=== PATIENT | female | born 1950 | race Caucasian/White ===

== ENCOUNTER → 2021-10-15 16:08 | Outpatient (CLI) | payer MEDICARE, SELFPAY ==
--- NOTE | ~2021-10-15 | MR_ITS ---
EXAMINATION: MR lumbar spine wo con DATE: 10/15/2021 16:59 INDICATION: Lumbar stenosis. TECHNIQUE: Magnetic resonance imaging (MRI) of the lumbar spine was performed without intravenous con trast. Sequences included sagittal T2-weighted FSE, sagittal T2-weighted FS FSE, sagittal T1-weighted FSE, and axial T2-weighted FSE. COMPARISON: Lumbar spine MRI 09/08/2018 FINDINGS: There is 8 degrees levocurvature of lumbar spine. There is 4 mm anterolisthesis of L3 on L4 and 6 mm anterolisthesis of L5 on S1. Vertebral body heights are normal. Again seen is a hemangioma in T12 vertebral body. There is severely decreased disc height at L1-L2 and L2-L3, moderately decreas ed disc height at L3-L4, and severely decreased disc height at L4-L5 and L5-S1 with endplate remodeli ng. The distal spinal cord signal intensity is normal. The conus medullaris is at L1. The following d isc levels are specifically discussed: L1-L2: The disc is bulging and has an annular fissure. There is severe bilateral facet joint osteoart hritis. There is moderate bilateral neural foraminal stenosis. There is mild central canal stenosis. L2-L3: The disc is bulging and has an annular fissure. There is severe bilateral facet joint osteoart hritis. There is moderate right and mild left neural foraminal stenosis. There is mild central canal stenosis. L3-L4: The disc is bulging and has an annular fissure. There is severe bilateral facet joint osteoart hritis. There is moderate right and mild left neural foraminal stenosis. There is mild central canal stenosis. L4-L5: The disc is bulging with superimposed right central extrusion. There is severe bilateral facet joint osteoarthritis. There is moderate bilateral neural foraminal stenosis. There is mild central c anal stenosis. L5-S1: The disc is bulging and has an annular fissure. There is severe bilateral facet joint osteoart hritis. There is moderate bilateral neural foraminal stenosis. There is mild central canal stenosis. IMPRESSION: 1. Severe lumbar spondylosis, worsened from 09/08/2018. Reviewed, dictated and finalized at location A.
== END ==
PROVIDERS: Visit Provider Neurological Surgery
DX: M48.061 Spinal stenosis, lumbar region without neurogenic claudication (principal); M47.896 Other spondylosis, lumbar region
CPT/HCPCS: 72148

== ENCOUNTER 2022-04-10 11:34 | Outpatient (CLI) | payer MEDICARE, SELFPAY ==
[2022-04-10 12:04] LABS: Basophils Absolute Auto 0.1 K/mm3 (0.0-0.1); Basophils Percent Auto 1.8 % (0.2-1.2); Eosinophils Absolute Auto 0.7 K/mm3 (0-0.3); Eosinophils Percent Auto 9.9 % (0-4.4); Hematocrit 37.6 % (37.0-47.0); Hemoglobin 12.9 g/dL (12.0-15.0); Immature Granulocyte Absolute 0.01 K/mm3 (0.00-0.031); Immature Granulocyte Percent A 0.1 % (0-0.5); Lymphocytes Absolute Auto 1.65 K/mm3 (0.9-3.2); Lymphocytes Percent Auto 24.5 % (18.3-44.2); Mean Corpuscular HGB Conc 34.3 g/dl (32-36); Mean Corpuscular Hemoglobin 29.9 pg (26-34); Mean Platelet Volume 9.7 fl (7.4-10.4); Monocytes Absolute Auto 0.5 K/mm3 (0.1-0.6); Monocytes Percent Auto 7.3 % (2.6-8.5); Neutrophils Absolute Auto 3.8 K/mm3 (1.3-6.7); Neutrophils Percent Auto 56.4 % (45.5-73.1); Platelet Count Result 246 k/mm3 (150-375); Red Blood Count 4.32 M/mm3 (4.2-5.4); Red Cell Distribution Width 12.3 % (11.5-14.5); White Blood Count 6.7 K/mm3 (4.5-10.0)
[2022-04-10 12:06] LABS: Appearance Urine Slightly Cloudy (Clear); Bilirubin Urine Negative (Negative); Blood Urine Negative (Negative); Color Urine Yellow (Yellow); Glucose Urine UA Negative (Negative); Ketones Urine Negative (Negative); Leukocyte Esterase Ur Trace LEU/UL (Negative); Nitrate Urine Negative (Negative); Protein Urine Negative (Negative); Specific Grav Ur 1.015 (1.001-1.035); Urobilinogen Urine 0.2 mg/dL (<2.0)
[2022-04-10 12:14] LABS: Bacteria Urine Trace /hpf; Mucus Urine Rare /lpf; RBC Urine 0-2 /hpf (0-2); Squamous Epithelial Cell Urine Moderate /hpf (Few); WBC Urine 0-3 /hpf
[2022-04-10 12:15] LABS: Add Urine Microscopic? YES
[2022-04-10 12:16] LABS: Anion Gap 13 mmol/L (8-16); Blood Urea Nitrogen 27 mg/dL (7-17); Calcium 9.4 mg/dL (8.4-10.2); Carbon Dioxide 27 mmol/L (22-30); Chloride 99 mmol/L (98-107); Estimated Glomerular Filt Rate 49; Glucose 87 mg/dL (65-110); Potassium 4.1 mmol/L (3.4-5.0); Sodium 139 mmol/L (137-145)
--- NOTE | 2022-04-10 12:16 | ECG_ITS ---
Measurements Intervals [place] Rate: 60 P: 34 NC: 189 QRS: 12 QRSD: 93 T: 0 QT: 391 QTc: 392 Interpretive Statements SINUS RHYTHM LOW QRS VOLTAGE IN PRECORDIAL LEADS CONSIDER INFERIOR INFARCT, AGE INDETERMINATE BASELINE ARTIFACT- I, II, III ABNORMAL ECG NO PREVIOUS ECG AVAILABLE FOR COMPARISON Electronically Signed On 04-10-2022 13:25:57 CUSTOMER ENGAGEMENT ANALYST by Miller Johnson D.O.
== END 2022-04-10 11:35 | disposition home or self-care (01) ==
PROVIDERS: PCP Family Medicine; Visit Provider Neurological Surgery
DX: Z01.818 Encounter for other preprocedural examination (principal); M54.9 Dorsalgia, unspecified
CPT/HCPCS: 36415; 80048; 81001; 85025; 86850; 86900; 86901; 93005

== ENCOUNTER 2022-04-29 13:34 | Outpatient (CLI) | payer MEDICARE, SELFPAY | END 2022-04-29 13:35 | disposition home or self-care (01) | LOC: ANHSURGERY 13:36 | PROVIDERS: PCP Family Medicine; Visit Provider Neurological Surgery | DX: M43.16 Spondylolisthesis, lumbar region (principal); Z01.818 Encounter for other preprocedural examination | CPT/HCPCS: 36415; 86850; 86900; 86901 ==

== ENCOUNTER 2022-05-05 15:37 | Inpatient (IN) | payer MEDICARE, SELFPAY ==
[2022-04-22 13:06] VITALS: BMI 36.1
--- NOTE | 2022-04-22 13:39 | PC.NURSE ---
Report to the Outpatient Waiting Room, entrance under the green pavilion located off [facility], at time __6:00AM on date __05/04/22 . Planned Procedure Time: _7:30AM . Time changes happen often and if your time is changed the preop area will call you the afternoon before. - You and your visitor will be asked to self-screen and do not enter if you have any COVID symptoms. - Only one visitor is requested with a max of two and NO children visitors are allowed at this time. - The patient visitor may be requested to leave or wait in car when not with patient due to distancing restrictions. - A mask is optional within the hospital. Patients may have clear liquids (water, carbonated beverages, clear teas, apple juice) until 3 hours prior to surgery with a maximum of 20 ounces. - No food from midnight until time of surgery Take the following medications with a SIP of water the morning of surgery: __AMLODIPINE, GABAPENTIN NEEDED, TRAMADOL NEEDED___ Medications to discontinue per physician _HOLD ASPIRIN & DICLOFENAC PER DR STAFFORD(7 DAYS PRE-OP PER OFFICE INSTRUCTION TO PT)-LAST DOSE 04/26/22. HOLD ALL VITAMINS/SUPPLEMENTS 3 DAYS PRE-OP - LAST DOSE 04/30/22. Please no make-up, nail belgian, hairspray, perfume, deodorant, or body powder the day of surgery. No jewelry (including any body piercings) or valuables the day of surgery, leave them at home. Please take a shower or bath the night before, or the morning of, surgery with an antibacterial soap. Wear comfortable, loose fitting clothing. Children are encouraged to wear pajamas. - Jewelry must be removed prior to entering the operating room. Rings and piercings that are not removed may be cut off. - The hospital will not accept responsibility for valuables. - Please leave all valuables, including medications, at home the day of surgery. If you are going home after surgery, a licensed line haul driver must drive you home. - NO public transportation without another adult if you receive anesthesia. - We recommend that an adult stay with you for 24 hours following discharge. - We also recommend that you do not drive, make important decision, drink alcoholic beverages, or take any drugs that were not prescribed by your health care provider for at least 24 hours after your discharge time. Follow any additional instructions given to you from your surgeon. If you or anyone in your household have experienced Covid symptoms in the past week, please notify your surgeon or the nurse liaison at the phone number below for possible testing. Telephone instructions given to _PATIENT__and asked if any additional questions and then verbalized understanding. Patient advised to call surgeon office or pre surgery nurse liaison [phone] if any additional questions.
[2022-05-04] VITALS (25 sets, daily range): BP systolic 101–150; BP diastolic 52–87; PULSE 59–93; RESP 10–20; TEMP 36.1–36.7; O2SAT 96–100
[2022-05-04] MEDS: LACTATED RINGERS 1,000 ML 30 ML IV CONT ×2 (06:35→12:16)
[2022-05-04 07:00] LABS: INR 1.1; Prothrombin Time 13.5 Seconds (11.1-14.7)
[2022-05-04 07:01] LABS: Partial Thromboplastin Time 26.9 SECONDS (22.3-36.8)
--- NOTE | 2022-05-04 07:57 | WPDANESEPPF ---
Anes - Initial Pre Proc Eval Procedure: Operation Date: 05/04/22 07:30 Proposed Procedures p L1-2 Lumbar Decompression with Adjunctive Posterior Lateral Fusion L3-4 - Drea Alfaro MD Date/Time: 05/04/22 07:57 Surgeon: Drea Alfaro MD Pre Op Diagnosis: spondylosis L3-4, spinal stenosis L1-2 Patient Data Age: 71 Gender: F Height: 1.52 m Weight: 80.4 kg Last Vital Signs Temp 36.4 C L 05/04/22 06:49 Pulse 72 05/04/22 06:49 Resp 18 05/04/22 06:49 BP 150/87 H 05/04/22 06:49 Pulse Ox 99 05/04/22 06:49 O2 Del Method Room Air 05/04/22 06:49 Allergies Allergy/AdvReac Type Severity Reaction Status Date / Time ergotamine AdvReac Unknown Nausea Verified 05/04/22 06:38 Home Medications Medication Instructions Recorded Confirmed Type atorvastatin 10 mg tablet 10 mg PO DAILY 12/05/21 05/04/22 History cetirizine 10 mg tablet (Zyrtec) 10 mg PO DAILY PRN Sinus Symptoms 12/05/21 05/04/22 History hydrochlorothiazide 25 mg tablet 25 mg PO QAM 12/05/21 05/04/22 History lansoprazole 30 mg capsule,delayed 30 mg PO DAILY 12/05/21 05/04/22 History release losartan 50 mg tablet 50 mg PO QAM 12/05/21 05/04/22 History metoprolol succinate 50 mg 50 mg PO QPM 12/05/21 05/04/22 History tablet,extended release 24 hr tramadol 50 mg tablet 50 mg PO TID PRN Pain 12/05/21 04/22/22 History tretinoin 0.01 % topical gel 1 applic topical QHS 12/05/21 04/22/22 History (Retin-A) amlodipine 5 mg tablet 5 mg PO QAM 03/27/22 05/04/22 History gabapentin 300 mg capsule 300 mg PO QID #120 caps 04/17/22 05/04/22 Rx acetaminophen 500 mg tablet 1,000 mg PO TID PRN Pain 04/22/22 05/04/22 History aspirin 81 mg tablet 81 mg PO DAILY 04/22/22 05/04/22 History cholecalciferol (vitamin D3) 50 50 mcg PO DAILY 04/22/22 05/04/22 History mcg (2,000 unit) capsule diclofenac sodium 75 mg 75 mg PO BID 04/22/22 05/04/22 History tablet,delayed release lactobacillus combination no.8 3 1 cell PO DAILY 04/22/22 05/04/22 History billion cell capsule multivitamin 1 tablet PO DAILY 04/22/22 05/04/22 History polyethylene glycol 3350 17 gram 17 g PO DAILY PRN Constipation 04/22/22 04/22/22 History oral powder packet (Miralax) Laboratory Tests 05/04/22 06:24 PT 13.5 Seconds Seconds (11.1-14.7) INR 1.1 APTT 26.9 SECONDS SECONDS (22.3-36.8) Patient hx anesthesia problems: none Family hx anesthesia problems: none Results Review: All pre-operative results and documents have been reviewed as part of the pre-operative evaluation. [facility] Past Medical History Medical History Arthritis Asthma GERD (gastroesophageal reflux disease) Hypertension Lumbar stenosis Sleep apnea Surgical History Surgical History History of carpal tunnel surgery Hx of breast reduction, elective Family History Family History Other Dementia Diabetes mellitus Heart disease Hypertension Social History Social History Smoking status: Never smoker Alcohol intake: never Substance use: never Substance use type: does not use Living arrangements: alone Spiritual care concerns: No Anes - Eval Final PreProcedure Day of Procedure 05/04/22 07:57 Patient weight: obese Heart: regular rate and rhythm Lungs: clear to auscultation Airway: Mallampati scale class II Neurological: alert and oriented Last oral intake: >/= 8 hours ASA classification: III Emergent: no Anesthetic plan: proceed Anesthesia type and monitoring: general ETT and standard monitoring Results Review: All pre-operative results and documents have been reviewed as part of the pre-operative evaluation. Informed Consent: The patient's anesthetic plan and its attendant risks and benefits were discussed with the patient/fam
--- NOTE | 2022-05-04 08:43 | PM.IMHP ---
H&P: HPI History of Present Illness Date/Time: 05/04/22 08:43 Chief Complaint: Kami Bello? is a very pleasant 71-year-old female who was originally seen in consultation at the request of Dr. Ismael Holt.? At the time of her initial visit the patient presented with a chief complaint of low back pain with radiation to the right buttock and anterior thigh.? When she originally saw Dr. Holt on April 29, 2021, her pain was her primary complaint.? She has had symptoms for approximately 4-5 years.? They have been progressive over the past 18 months.? Kami does not recall a specific inciting events.? At her visit with Dr. Holt she noted pain that she rated approximately 3/10.? She had increase in her pain with standing or walking any significant distance as well as with driving toward the end of the day.? At that initial visit with Dr. Holt the patient had noted a subjective sense of proximal right lower extremity weakness.? She was referred to see me.? At my initial visit she felt that an oral taper steroid taper had helped with her symptoms.? She remained, however, with intermittent pain and persistent sensory change in the right anterior thigh with radiation from the hip to the knee. MR imaging performed on February 27, 2021 showed multilevel spondylotic changes with disc desiccation and loss of disc space height.? A disc bulge in concert with epidural lipomatosis contributed to [id number] central stenosis at L1-2 and moderate stenosis at L2-3 and L3-4.? There was a grade 1 anterolisthesis at L3-4 and another at L5-S1.? At L5-S1 there was bilateral neural foraminal stenosis.? AP lateral and dynamic plain x-ray showed the listhesis L3-4 increasing in flexion with reduction in extension.? There was no dynamic instability at L5-S1. When I initially saw Kami I did not see an objective finding of weakness on examination.? The patient has undergone epidural steroid injections particularly targeting L2-3 and L3-4.? These have given significant relief of her pain but they have not been lasting relief of her pain.? She returns to my office with frustration particularly regarding her proximal right lower extremity symptoms.? Her most recent injection toward the end of July gave complete relief of her symptoms but has not lasted for more than 1-2 months.? She is inclined to consider surgery.? She does know, however, that she has sustained a fracture in her left foot and is currently wearing a boot.? She would like to have the fracture heal prior to any consideration of surgery.? She does have a history of prior bone density testing with normal bone density, most recently in 2019. Kami has undergone updated MRI imaging of the lumbar spine at [facility] in September of 2021.? This again shows the multilevel degenerative changes.? There has been progression of stenosis at L1-2 with primarily? epidural lipomatosis.? There is at least moderate stenosis at this level.? At L2-3 there is only mild central stenosis.? At L3-4 the combination of anterolisthesis, disc bulge, and ligamentous hypertrophy contribute to moderate severe central stenosis.? There is severe bilateral neuroforaminal stenosis at this level.? At a subsequent visit we discussed the possibility of surgical intervention, specifically a lumbar decompression at L1-2 and a lumbar decompression with adjunctive fusion at L3-4.? I recommended the patient heal from her foot fracture prior to consideration of surgery.? Her foot fracture has healed.? She remains, however, with low back and lower extremity symptoms that are increasingly limiting.? She is inclined to consider surgery and surgery is planned for today. There have been no changes since our office visit in February 2022 The patient has undergone bone density testing since our last visit.? This shows normal bone density PMFSH Past Medical History Medical History Arthritis Asthma GERD (gastroesophageal
[2022-05-04] MEDS: ceFAZolin 2 GM/D5W 50 ML 2 GM/50 ML BAG IVPB (08:55)
--- NOTE | 2022-05-04 09:22 | WPDHPUPDATE1 ---
History and Physical Update Update Date/Time: 05/04/22 09:22 History and Physical has been reviewed, including an updated exam of the patient. There are NO changes in the patient's condition. Risks, benefits, and alternatives have been discussed and questions answered. Patient agrees to proceed with procedure.
[2022-05-04] MEDS: LIDO 1%/EPINEPHRINE/PF 1:200,000 30 ML VIAL INFILTRATE (09:53)
[2022-05-04] MEDS: VANCOMYCIN HCL 1,000 MG VIAL 1000 MG TOPICAL (11:22)
--- NOTE | 2022-05-04 12:00 | W.PM.PROC2 ---
Procedure Note - Detailed Date of Procedure 05/04/22 Pre-op Diagnosis spondylosis L3-4, spinal stenosis L1-2 Post-op Diagnosis Same Procedure Performed 1. Lumbar laminectomy and medial facetectomy for spinal stenosis L1-2 2. Hurst decompression with en bloc resection of facet complexes bilaterally for spondylolisthesis L3-4 3. Posterolateral arthrodesis, L3-4 4. Instrumented non segmental fusion L3-4 Surgeon Drea Alfaro MD Anesthesia General Indications Kami Bello? is a very pleasant 71-year-old female who presents at the request of Dr. Ismael Holt with signs and symptoms of proximal right lower extremity pain and sensory changes in the setting of lumbar stenosis with epidural lipomatosis and spondylolisthesis most pronounced at L1-2 and L3-4 on imaging.? The patient's prior stenosis seen at L2-3 is less significant on most updated imaging.? The patient has tried treatments include physical therapy as well as epidural steroid injections.? Recent injections have given significant temporary relief of the patient's symptoms but she has had recurrent pain.? She is increasingly frustrated by her pain and sensory changes well as her lack of mobility and she is inclined to consider surgery.? Her brother, who accompanied her the office, notes that over the past several years the patient has been doing less in terms of activities that she would typically enjoys due to pain.? He mentions that the patient typically enjoys traveling with his family.? She has not been taking medications because of her difficulties with ambulation due to pain. The patient and I have had an extended discussion in the office regarding the options for management of her symptoms radiographic findings.? We have discussed the option of repeated physical therapy or additional epidural steroid injections.? As these measures have not given lasting relief today the likelihood that repeated times would offer a different result is small.? We have discussed, however, that as the patient would desire to wait until after her foot is healed to consider surgery that she could consider return to Dr. Holt for epidural steroid injections as a temporizing measure.? The patient is already taking gabapentin and will continue with this.? I do not have a large number of other nonsurgical measures that are likely to offer the patient pain relief Thus we have again today generally discussed the option of surgery.? With stenosis at L1-2 and L3-4 and mobile spondylolisthesis at the L3-4 level, if we were to consider surgery I would advocate for a lumbar decompression at L1-2 and lumbar decompression with adjunctive posterolateral fusion at L3-4. I have explained that surgery would entail a lumbar decompression with removal of epidural lipomatosis at L1-2 and lumbar decompression and fusion at L3-4. I have explained the indications for surgery as well as the risks, including but not limited to bleeding, infection, CSF leak, numbness, weakness, paralysis, stroke, coma, even . We have discussed the risk of pseudarthrosis, hardware failure, adjacent level disease, and even the need for further surgery. We have discussed the fundamentals of the surgical procedure and the typical recovery from surgery. Kami indicates understanding and asks us to proceed Description of Procedure The patient was brought into the operating room where general anesthesia was induced.? Appropriate monitoring was obtained.? The patient was turned into a prone position on the Arron table with a [place] frame.? Extremeties were padded.? The patient was secured with straps to the table.? Localization was performed using intraoperative fluoroscopy and the L1-2 and L3-4 levels were identified. The patient's back was prepped and draped sterilely.? A surgical time out was performed.?? The incision was made using a #10 skin blade.? Hemostasis was achieved. Self retaining retractors were placed and advanced.? The?L1, L2, L3 and L4? processes
--- NOTE | 2022-05-04 12:35 | SUR.PHASEI ---
1230 - dr. adair at bedside assessing pt's neuro assessment.
[2022-05-04] MEDS: fentaNYL CITRATE INJ (*CRX) 100 MCG/2 ML VIAL 25 MCG IV PUSH ×8 (12:38→14:10)
--- NOTE | 2022-05-04 14:30 | SUR.PHASEI ---
1430 - pt meets anesthesia criteria. no bed available at this time. pt to preop for extended recovery
[2022-05-04] MEDS: HYDROcodone/acetaminophen (*CRX) 5-325 MG TABLET 1 TAB PO (16:16)
[2022-05-04] MEDS: KCL 20 MEQ/D5/0.45% SOD CHL 1,000 ML 100 ML IV CONT (18:57)
[2022-05-04] MEDS: METOPROLOL SUCCINATE EXT REL 50 MG TABCR PO (20:26)
[2022-05-04] MEDS: DOCUSATE SODIUM 100 MG CAPSULE PO (20:26)
[2022-05-04] MEDS: GABAPENTIN 300 MG CAPSULE PO (20:26)
[2022-05-05] VITALS (8 sets, daily range): BP systolic 114–149; BP diastolic 52–70; PULSE 70–86; RESP 18–20; TEMP 36.1–36.7; O2SAT 98–100
--- NOTE | ~2022-05-05 | XR_ITS ---
EXAMINATION: XR fluoroscopy no charge DATE: 05/04/2022 8:55 JOURNALISM INSTRUCTOR INDICATION: LUMBAR DECOMPRESSION . TECHNIQUE: 2 fluoroscopic images of the lateral lumbar spine were obtained during lumbar decompressio n performed by the surgeon. I was not present in the operating room. Fluoroscopy exposure time was 30 seconds. Air Kerma 25.810 mGy. DAP 0.5117 mGym2. COMPARISON: MR L-spine 10/15/2021 FINDINGS: Interval partial reduction of the previously described L3-4 anterolisthesis. Bilateral pedicle screws at L3 and L4. Skin retractors project over the soft tissues. IMPRESSION: Fluoroscopic documentation of lumbar decompression. Please refer to the operative note for complete p rocedural details . Reviewed, dictated and finalized at location K. NALISM INSTRUCTOR IMPRESSION: Fluoroscopic documentation of lumbar decompression. Please refer to the operati ve note for complete procedural details .
[2022-05-05] MEDS: HYDROcodone/acetaminophen (*CRX) 10-325 MG TABLET 1 TAB PO (00:35)
[2022-05-05] MEDS: KCL 20 MEQ/D5/0.45% SOD CHL 1,000 ML 100 ML IV CONT (06:04)
[2022-05-05] MEDS: hydroCHLOROthiazide 25 MG TABLET PO (08:20)
[2022-05-05] MEDS: DOCUSATE SODIUM 100 MG CAPSULE PO ×2 (08:20→21:04)
[2022-05-05] MEDS: LOSARTAN POTASSIUM 50 MG TABLET PO (08:20)
[2022-05-05] MEDS: GABAPENTIN 300 MG CAPSULE PO ×4 (08:20→21:04)
[2022-05-05] MEDS: ATORVASTATIN 10 MG TABLET PO (08:20)
[2022-05-05] MEDS: PANTOPRAZOLE 40 MG TABLET PO (08:20)
[2022-05-05] MEDS: amLODIPine BESYLATE 5 MG TABLET PO (08:20)
[2022-05-05] MEDS: HYDROcodone/acetaminophen (*CRX) 5-325 MG TABLET 1 TAB PO ×2 (10:09→22:24)
--- NOTE | 2022-05-05 14:26 | WPDNEUROSGPN ---
Progress Note: A&P Assessment and Plan (1) Epidural lipomatosis: Code(s): D17.79 - Benign lipomatous neoplasm of other sites Status: Acute (2) Spondylolisthesis at L3-L4 level: Code(s): M43.16 - Spondylolisthesis, lumbar region Status: Acute Plan Ivana is doing well and will continue to work on transfers and ambulation and pain control. She states that the hydrocodone makes her feel bad and therefore old we will attempt to use tramadol leave the hydrocodone in case it is not strong enough. She may be discharged on whichever 1 she is using affectively. Subjective Date/time seen: 05/05/22 14:26 Ivana is postop day 1 status post posterolateral lumbar fusion and laminectomy. She is making independent transfers and ambulating. She still has a drain in place. Pain control is still an issue. She is not having new issues in her lower extremities. Exam Narrative: Strength is normal in the bilateral lower extremities to direct confrontation. Sensation is intact to light touch in the lower extremities. Dressing is clean, dry and intact. Objective Data Vital Signs Vital Signs: Vital Signs - 24 hr 05/04/22 14:27 05/04/22 14:45 05/04/22 15:45 Temperature Pulse Rate 63 61 72 Respiratory Rate 12 14 14 Blood Pressure 114/64 101/55 L 125/73 Pulse Oximetry 98 98 98 Oxygen Delivery Nasal Cannula Nasal Cannula Nasal Cannula Oxygen Flow Rate 2 2 2 05/04/22 16:45 05/04/22 17:45 05/04/22 18:20 Temperature 97.7 F Pulse Rate 88 92 93 Respiratory Rate 14 14 16 Blood Pressure 125/70 121/58 L 122/59 L Pulse Oximetry 98 98 100 Oxygen Delivery Nasal Cannula Nasal Cannula Nasal Cannula Oxygen Flow Rate 2 2 2 05/04/22 18:45 05/04/22 18:58 05/04/22 20:26 Temperature 97.5 F L 97.6 F Pulse Rate 76 86 80 Respiratory Rate 18 18 Blood Pressure 119/53 L 110/54 L Pulse Oximetry 98 99 Oxygen Delivery Oxygen Flow Rate 05/04/22 20:00 05/04/22 19:08 05/04/22 19:23 Temperature 97.5 F L 97.0 F L Pulse Rate 80 76 86 Respiratory Rate 18 18 18 Blood Pressure 119/53 L 110/54 L Pulse Oximetry 99 98 99 Oxygen Delivery Room Air Oxygen Flow Rate 05/04/22 19:53 05/04/22 20:23 05/04/22 21:23 Temperature 97.0 F L 97.1 F L 97.0 F L Pulse Rate 72 70 71 Respiratory Rate 18 18 18 Blood Pressure 117/52 L 120/61 122/56 L Pulse Oximetry 97 99 99 Oxygen Delivery Oxygen Flow Rate 05/05/22 01:23 05/05/22 05:23 05/05/22 08:32 Temperature 97.0 F L 97.8 F Pulse Rate 70 86 Respiratory Rate 18 18 Blood Pressure 115/68 149/70 H Pulse Oximetry 98 98 Oxygen Delivery Room Air Oxygen Flow Rate 05/05/22 08:00 05/05/22 10:19 Temperature 98.0 F Pulse Rate 80 Respiratory Rate 18 Blood Pressure 136/67 Pulse Oximetry 100 Oxygen Delivery Room Air Oxygen Flow Rate Intake/Output Intake/Output: Intake & Output 05/02/22 05/03/22 05/04/22 05/05/22 23:59 23:59 23:59 23:59 Intake Total 2100 1100 Output Total 690 2100 Balance 1410 -1000 Meds/Results Medications: Active Medications Generic Name Dose Route Start Last Admin Trade Name Freq PRN Reason Stop Dose Admin Hydrocodone Bitart/Acetaminophen 1 tab 05/04/22 16:11 05/05/22 10:09 Hydrocodone/Acetaminophen (*Crx) 5-325 Mg Tablet PO 1 tab Q4H PRN Administration Mild Pain (1-3) Hydrocodone Bitart/Acetaminophen 1 tab 05/04/22 16:11 05/05/22 00:35 Hydrocodone/Acetaminophen (*Crx) 10-325 Mg Tablet PO 1 tab Q4H PRN Administration Moderate Pain (4-6) Al Hydrox/Mg Hydrox/Simethicone 20 ml 05/04/22 18:23 Mag Hydrox/Al Hydrox/Simeth 30 Ml Udc PO Q4H PRN Indigestion/Heartburn Amlodipine Besylate 5 mg 05/05/22 09:00 05/05/22 08:20 Amlodipine Besylate 5 Mg Tablet PO 5 mg QAM SAIGE Administration Atorvastatin Calcium 10 mg 05/05/22 09:00 05/05/22 08:20 Atorvastatin 10 Mg Tablet PO 10 mg DAILY SAIGE Administration Bisacodyl 10 mg
[2022-05-05] MEDS: traMADol HCL (*CRX) 50 MG TABLET PO (16:31)
[2022-05-05] MEDS: METOPROLOL SUCCINATE EXT REL 50 MG TABCR PO (17:47)
[2022-05-06] MEDS: HYDROcodone/acetaminophen (*CRX) 5-325 MG TABLET 1 TAB PO ×3 (03:57→16:57)
[2022-05-06 06:00] VITALS: BP 118/55; PULSE 65; RESP 16; TEMP 36.8; O2SAT 98
[2022-05-06] MEDS: ATORVASTATIN 10 MG TABLET PO (08:29)
[2022-05-06] MEDS: DOCUSATE SODIUM 100 MG CAPSULE PO (08:29)
[2022-05-06] MEDS: GABAPENTIN 300 MG CAPSULE PO ×3 (08:29→16:57)
[2022-05-06] MEDS: amLODIPine BESYLATE 5 MG TABLET PO (08:29)
[2022-05-06] MEDS: hydroCHLOROthiazide 25 MG TABLET PO (08:29)
[2022-05-06] MEDS: LOSARTAN POTASSIUM 50 MG TABLET PO (08:29)
[2022-05-06] MEDS: PANTOPRAZOLE 40 MG TABLET PO (08:29)
--- NOTE | 2022-05-06 13:41 | WPDNEURCNPN ---
Consult date: 05/06/22 Time Seen: 12:45 Reason for consult: post op HPI: Kami Bello is a 71 year old female, post op day 2, Status post lumbar decompression L1-2 with an adjunctive fusion at L3-4. Patient reports that she has significant pain relief to previous bilateral low back as well as bilateral lower extremity pain. She does report incisional pain to her midline lumbar spine. She reported today that she has ambulated without difficulty and feels that she is ready to go home and continue her recovery. Drain has been removed and is voiding without difficulty. Overall patient reports that she is happy with the success that she has obtained thus far. All questions and concerns were answered to the patient's satisfaction. [facility] Past Medical History Medical History Arthritis Asthma GERD (gastroesophageal reflux disease) Hypertension Lumbar stenosis Sleep apnea Surgical History Surgical History History of carpal tunnel surgery Hx of breast reduction, elective Family History Family History Other Dementia Diabetes mellitus Heart disease Hypertension Social History Social History Smoking status: Never smoker Alcohol intake: never Substance use: never Substance use type: does not use Living arrangements: alone Spiritual care concerns: No Meds Home Medications and Allergies Home Medications Medication Instructions Recorded Confirmed Type atorvastatin 10 mg tablet 10 mg PO DAILY 12/05/21 05/04/22 History cetirizine 10 mg tablet (Zyrtec) 10 mg PO DAILY PRN Sinus Symptoms 12/05/21 05/04/22 History hydrochlorothiazide 25 mg tablet 25 mg PO QAM 12/05/21 05/04/22 History lansoprazole 30 mg capsule,delayed 30 mg PO DAILY 12/05/21 05/04/22 History release losartan 50 mg tablet 50 mg PO QAM 12/05/21 05/04/22 History metoprolol succinate 50 mg 50 mg PO QPM 12/05/21 05/04/22 History tablet,extended release 24 hr tramadol 50 mg tablet 50 mg PO TID PRN Pain 12/05/21 04/22/22 History tretinoin 0.01 % topical gel 1 applic topical QHS 12/05/21 04/22/22 History (Retin-A) amlodipine 5 mg tablet 5 mg PO QAM 03/27/22 05/04/22 History gabapentin 300 mg capsule 300 mg PO QID #120 caps 04/17/22 05/04/22 Rx acetaminophen 500 mg tablet 1,000 mg PO TID PRN Pain 04/22/22 05/04/22 History aspirin 81 mg tablet 81 mg PO DAILY 04/22/22 05/04/22 History cholecalciferol (vitamin D3) 50 50 mcg PO DAILY 04/22/22 05/04/22 History mcg (2,000 unit) capsule diclofenac sodium 75 mg 75 mg PO BID 04/22/22 05/04/22 History tablet,delayed release lactobacillus combination no.8 3 1 cell PO DAILY 04/22/22 05/04/22 History billion cell capsule multivitamin 1 tablet PO DAILY 04/22/22 05/04/22 History polyethylene glycol 3350 17 gram 17 g PO DAILY PRN Constipation 04/22/22 04/22/22 History oral powder packet (Miralax) cyclobenzaprine 10 mg tablet 10 mg PO TID PRN muscle spasm #30 05/05/22 Rx tabs hydrocodone 5 mg-acetaminophen 325 1 tablet PO Q4-6H PRN pain #30 tabs 05/05/22 Rx mg tablet Allergies Allergy/AdvReac Type Severity Reaction Status Date / Time ergotamine AdvReac Unknown Nausea Verified 05/04/22 06:38 Vital Signs Vital Signs - 24 hr 05/05/22 14:50 05/05/22 17:47 05/05/22 17:51 Temperature 36.3 C L Pulse Rate 82 74 Respiratory Rate 18 Blood Pressure 115/52 L 125/58 L Pulse Oximetry 98 Oxygen Delivery 05/05/22 21:44 05/05/22 20:00 05/06/22 06:00 Temperature 36.7 C 36.8 C Pulse Rate 79 79 65 Respiratory Rate 20 20 16 Blood Pressure 114/57 L 118/55 L Pulse Oximetry 99 99 98 Oxygen Delivery Room Air 05/06/22 08:00 Temperature Pulse Rate Respiratory Rate Blood Pressure Pulse Oximetry Oxygen Delivery Room Air Exam Narrative: Aw
[2022-05-06 14:00] VITALS: BP 105/50; PULSE 87; RESP 18; TEMP 36.5; O2SAT 100
[2022-05-06 16:59] VITALS: PULSE 93
[2022-05-06] MEDS: METOPROLOL SUCCINATE EXT REL 50 MG TABCR PO (16:59)
--- NOTE | 2022-06-19 15:02 | PM.DS ---
DS: Admitting Diagnosis Discharge Date 05/06/22 Admitting Diagnosis lumbar stenosis; epidural lipomatosis DS: Discharge Diagnosis Discharge Diagnosis Plan lumbar stenosis; epidural lipomatosis DS: Summary Hospital Course Reason for hospitalization: the patient was admitted to the hospital for elective lumbar spinal decompression. Hospital Course: The patient tolerated surgery without complications. She was stable for discharge to home on postoperative day 2 Status at Discharge Functional status at discharge: independent ambulation Overall status at discharge: patient is progressing back to baseline Time Spent with Patient Time attestation: Total time spent providing and/or coordinating discharge services: Time spent: Less than 30 minutes Exam Narrative: AAOx3 Speech CF REBEKAH EOMI Face= TML MAEW with good strength Discharge Plan Discharge Attending physician on discharge: Drea Alfaro Consulting providers: Dougie Alvarez ; Tom Matias ; Sulma Conrad Discharging Clinician: Drea Alfaro Anticipated Discharge Date/Time: 05/06/22 15:04 Patient Disposition: Home, Self-Care Activity: other - see discharge instructions Diet: regular Wound Care Instructions: other - see discharge instructions Discharge Instructions: May take the dressing off on post-op day 3 Showers are acceptable after day 3 post-op. No tub baths, pool or hot tubs. Walking after surgery and upon discharge is an acceptable form of exercise. Take discharge pain medications as needed. Stand Alone Forms: General Discharge Instructions Follow-up/Referrals: Drea Alfaro MD [Physician] - (follow up in 2 weeks for staple removal) Discharge Medications: New cyclobenzaprine 10 mg tablet 10 mg PO TID PRN (Reason: muscle spasm) Qty: 30 0RF hydrocodone-acetaminophen 5-325 mg tablet 1 tablet PO Q4-6H PRN (Reason: pain) Qty: 30 0RF Continued atorvastatin 10 mg tablet 10 mg PO DAILY hydrochlorothiazide 25 mg tablet 25 mg PO QAM losartan 50 mg tablet 50 mg PO QAM metoprolol succinate 50 mg tablet extended release 24 hr 50 mg PO QPM lansoprazole 30 mg capsule,delayed release(DR/EC) 30 mg PO DAILY cetirizine [Zyrtec] 10 mg tablet 10 mg PO DAILY PRN (Reason: Sinus Symptoms) tretinoin [Retin-A] 0.01 % gel 1 applic topical QHS amlodipine 5 mg tablet 5 mg PO QAM multivitamin Tablet 1 tablet PO DAILY cholecalciferol (vitamin D3) 50 mcg (2,000 unit) Capsule 50 mcg PO DAILY lactobacillus combination no.8 3 billion cell Capsule 1 cell PO DAILY acetaminophen 500 mg Tablet 1,000 mg PO TID PRN (Reason: Pain) polyethylene glycol 3350 [Miralax] 17 gram Powder In Packet 17 g PO DAILY PRN (Reason: Constipation) Held tramadol 50 mg tablet 50 mg PO TID PRN (Reason: Pain) Hold Instructions: Resume on 05/08/22. once weaned from Hydrocodone diclofenac sodium 75 mg tablet,delayed release (DR/EC) 75 mg PO BID Hold Instructions: Resume on 08/03/22. aspirin 81 mg Tablet 81 mg PO DAILY Hold Instructions: Resume on 05/18/22. No Action gabapentin 300 mg capsule See Rx Instructions .ROUTE .COMPLEX Qty: 120 1RF Dose Instruction: TAKE 1 CAPSULE BY MOUTH 4 TIMES A DAY Rx Instructions: TAKE 1 CAPSULE BY MOUTH 4 TIMES A DAY Date of admission: 05/05/22 15:37 Primary Care Provider: Asad,Kraig Lamb Admitting Provider: Drea Alfaro Attending physician on admission: Drea Alfaro Condition: Stable Quality VTE Prophylaxis VTE prophylaxis: mechanical ordered
== END 2022-05-06 17:10 | disposition home or self-care (01) | DRG 460 ==
LOC: ANHSURGERY 15:44 → ANH3MED 15:44
PROVIDERS: Admitting Provider Neurological Surgery; PCP Family Medicine; Visit Provider Neurological Surgery
PROC: 00NY0ZZ Release Lumbar Spinal Cord, Open Approach (ICD-10-PCS; CPT 22612; principal; 2022-05-04 07:30)
DX: M48.061 Spinal stenosis, lumbar region without neurogenic claudication (principal); M43.16 Spondylolisthesis, lumbar region; D17.79 Benign lipomatous neoplasm of other sites; M19.90 Unspecified osteoarthritis, unspecified site; K21.9 Gastro-esophageal reflux disease without esophagitis; G47.30 Sleep apnea, unspecified; J45.909 Unspecified asthma, uncomplicated; E66.9 Obesity, unspecified; Z68.34 Body mass index [BMI] 34.0-34.9, adult
CPT/HCPCS: 36415; 85610; 85730; 97161; 97165; 97530; 97535; 99199; A9270; C1713; C9290; J0330; J0690; J1100; J1170; J2250; J2370; J2405; J2704; J2710; J3010; J3370; J3480; J7030; J7120

== ENCOUNTER 2022-06-16 12:13 | Outpatient (CLI) | payer MEDICARE, SELFPAY ==
--- NOTE | ~2022-06-16 | XR_ITS ---
XR lumbar spine 2-3V DATE: 06/16/2022 12:37 INDICATION: Fusion and decompression 6 weeks ago. Postoperative. TECHNIQUE: AP, lateral and coned lateral lumbosacral views COMPARISON: 10/15/2021 MR lumbar spine FINDINGS: There is diffuse osteopenia. There is mild dextroscoliosis of the lower thoracic and lumbar spine. Status post posterior surgical fusion by pedicle screws and rods at L3-4. The hardware appears intact without fracture or displacement. There is grade 1 anterolisthesis at L3-4 and L5-S1. There is severe degenerative disc disease at L1-2 and moderately severe degenerative disc disease at L2-3, L3-4. There is severe degenerative disease at L4-5 and L5-S1. No fracture or bone destruction is evident. The sacroiliac joints are intact. IMPRESSION: Status post posterior surgical fusion at L3-4 Moderately severe to severe degenerative disease throughout the lumbar and lumbosacral spine Grade 1 anterolisthesis at L3-4 and L5-S1 Osteopenia Reviewed, dictated and finalized at location L. ARATORY TECHNICIAN IMPRESSION: Status post posterior surgical fusion at L3-4 Moderately severe to severe degenerative disease throughout the lumbar and lumb osacral spine Grade 1 anterolisthesis at L3-4 and L5-S1 Osteopenia
== END 2022-06-16 12:14 | disposition home or self-care (01) ==
LOC: ANHIMG 12:19
PROVIDERS: PCP Family Medicine; Visit Provider Nurse Practitioner Adult Health
DX: Z98.1 Arthrodesis status (principal); M85.88 Other specified disorders of bone density and structure, other site; M51.36 Other intervertebral disc degeneration, lumbar region; M51.37 Other intervertebral disc degeneration, lumbosacral region
CPT/HCPCS: 72100

== ENCOUNTER 2022-08-26 14:30 | Outpatient (RCR) | payer MEDICARE, SELFPAY ==
--- NOTE | 2022-07-02 13:27 | OTOPDC ---
Assessment and note entered by Pedro Mcgee, OTR/Marielena, CHT Evaluation Information Assessment Status Evaluation Diagnosis Laminectomy and Fusion L3-L4 Onset 05/04/22 Subjective Information Patient reports having some OT at the hospital prior to discharging home. 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 Has been slowly getting back into cooking/cleaning. States when she loads the senior director she only uses the top rack because she is unsure how far she is allowed to bend over. Reported Pain Level Pain Score 0: Self Report Additional Pain Score Comments No pain when sitting/at rest. Increases to 2/10 with standing/walking. At the end of the day the back pain can increase to 6/10. Assessment OT Clinical Summary Patient referred to outpatient OT following lumbar (L3-L4) laminectomy and fusion. She presents today with questions regarding being able to complete household tasks. Discussed at length proper body mechanics with bending/reaching into the senior director, washing machine, and freezer. Discussed modifications with carrying and lifting. She verbalizes excellent understanding of all materials. No further skilled OT indicated at this time. Plan of Care OT Services Indicated No
--- NOTE | 2022-07-02 14:31 | PTOPEVAL1 ---
Assessment and note entered by Barbara Westbrook, PT Evaluation Information Assessment Status Evaluation Diagnosis s/p lumbar decompression surgery L 1-2 with fusion L 3-4 Onset May 04, 2022 Subjective Information since surgery, have been taking it easy at home; have help for housekeeping, laundry-- previously did everything on her own at home; have membership at [facility], have gone and started recumbant stepper about 30 minutes without resistance; and some stretching to back; not sure what I can do; get tired and do not have my stamina back yet; doing OK getting around my house, but stairs are little challange- have 3 steps without a railing into home, hold onto door jam; GOAL: get back to the [facility] for exercises, do stairs easier, get back to indep--not have to have helpers at home anymore; Reported Pain Level Pain Score Self Report Pain Score Self Report Additional Pain Score Comments pain range of 0-3/10, sore in R and L buttock, lateral hips; is off arthritis meds due to surgery, so feel like it is causing more hip pain; discussed use of heat/ice is not using now but hot shower feels good; with sleeping, tends to sleep on her sides, educated on use of pillow between knees for posture; awaken from sleep 2x/night due to pain in back; decrease pain with tylenol, hot shower; is weaning of gabapentin; Additional Pain Score Comments Assessment PT Clinical Summary Kami has the diagnosis of spondylolisthesis, s/p lumbar decompression L 1-2 and fusion L 3-4. She lives alone and prior to surgery, was indep with all home and self care tasks. She now has assistance for laundry and home cleaning, with grocery delivery service. She has 3 entry steps without a railing and is having problems on them. Her sleep is disrupted due to pain in her back. She also expressed concern about getting up/down from the floor. Kami has a [facility] membership and has started back doing the recumbant bicycle and stepper, without any resistance. With the evaluatio
--- NOTE | 2022-07-29 13:29 | PTOPPROG ---
Assessment and note entered by Deann Marcus, PT, DPT Evaluation Information Assessment Status Progress Diagnosis s/p lumbar decompression surgery L 1-2 with fusion L 3-4 Onset May 04, 2022 Subjective Information Pt states her lower back is still sore and painful , she states this may be some arthritis. She states has been able to do some of her laundry on her own. She states she is able to cook and do light cleaning more. Assessment PT Clinical Summary Kami presents to therapy today for her progress report following 8 visits of skilled therapy to treat the deficits following a lumbar recompression and fusion. She demonstrates good strength and improving functional mobility. She is still limiting with lifting mechanics d/t a reports weight lifting restriction. Continuation of skilled physical therapy services are indicated to continue progressing LE strength, core strength, balance, and functional mobility. Plan of Care Interventions Electrical Stimulation,Gait Training,Hot Pack/Cold Pack,Manual Therapy,Neuro Re-education,Patient/ Caregiver Educati,Therapeutic Activities, Therapeutic Exercise PT Services Indicated Yes Treatment Frequency and 2x/wk for 4 wks Duration These treatments will address the objective and functional deficits as defined above. The patient will be advanced safely and appropriately in order for the patient to progress towards his/her prior level of function. Additional exercises will be introduced and as well as a comprehensive home exercise program upon discharge, if needed, ?to ensure carryover of functional gains achieved in the clinic. This treatment plan has been reviewed and agreement upon by the patient.
--- NOTE | 2022-08-26 15:09 | PTOPDC ---
Assessment and note entered by Deann Marcus, PT, DPT Evaluation Information Assessment Status Discharge Diagnosis s/p lumbar decompression surgery L 1-2 with fusion L 3-4 Onset May 04, 2022 Subjective Information Pt states overall she is doing great. She reports 80% improvement in overall symptoms. She states she sees a personal injury attorney 2x/wk and goes 1-2x/wk on her own. She states she does all of her daily chores on her own at this point except for change her bedsheets which she states she got a tool to assist with this. Reported Pain Level Pain Score 0,2: Self Report Assessment PT Clinical Summary Kami presents to therapy today for her progress report following 16 visits of skilled therapy to treat her post-op lumbar decompression and fusion. Today she demonstrates good functional and gross strength. 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 She demonstrates great body awareness with functional activities. She has met all of her therapy goals at this time and will be discharged to continue her HEP. She was told to follow up with her referring provider if she needs additional therapy at a later time. Pt is comfortable and agreeable to this POC. Plan of Care Interventions Electrical Stimulation,Gait Training,Hot Pack/Cold Pack,Manual Therapy,Neuro Re-education,Patient/ Caregiver Educati,Therapeutic Activities, Therapeutic Exercise PT Services Indicated No Treatment Frequency and to be discharged Duration
== END 2022-08-27 13:58 | disposition home or self-care (01) ==
LOC: ANHGOSHPT 14:30
PROVIDERS: PCP Family Medicine; Visit Provider Nurse Practitioner Adult Health
DX: M43.10 Spondylolisthesis, site unspecified (principal)
CPT/HCPCS: 97110; 97112; 97140; 97161; 97165; 97530

== ENCOUNTER 2022-09-03 11:31 | Outpatient (CLI) | payer MEDICARE, SELFPAY ==
--- NOTE | ~2022-09-03 | XR_ITS ---
EXAMINATION: XR lumbar spine 2-3V DATE: 09/03/2022 11:55 INDICATION: Chronic low back pain TECHNIQUE: Anteroposterior and lateral views of the lumbar spine, and cone-down lateral view of the l umbosacral junction were obtained. COMPARISON: 04/16/2023 FINDINGS: There are changes of posterior fusion and L3-4. There are 5 mm of stable anterolisthesis of L3 on L4 and 7 mm of stable anterolisthesis of L5 on S1. There is severe loss of intervertebral disc space height throughout the lumbar spine. No fracture is identified. The vertebral body heights are maintained. There is moderate facet joint osteoarthritis of the lower lumbar spine. IMPRESSION: 1. Postsurgical changes and severe lumbar spondylosis without acute findings or significant interval change. Reviewed, dictated and finalized at location [facility].
== END 2022-09-03 11:32 | disposition home or self-care (01) ==
LOC: ANHIMG 11:34
PROVIDERS: PCP Family Medicine; Visit Provider Neurological Surgery
DX: Z98.890 Other specified postprocedural states (principal); M47.896 Other spondylosis, lumbar region
CPT/HCPCS: 72100

== ENCOUNTER 2022-11-27 11:05 | Outpatient (CLI) | payer MEDICARE, SELFPAY ==
--- NOTE | ~2022-11-27 | XR_ITS ---
Lumbosacral Spine: AP and lateral views Clinical History: Pain COMPARISON: 09/03/2022 Findings: Stable posterior fusion from L3-L4, with bilateral rods and transpedicular screws present. 7 mm anterolisthesis of L3 over L4 is similar to prior exam. 10 mm anterolisthesis of L5 over S1 is s imilar to prior exam. There is advanced degenerative disc narrowing at all lumbar levels. There is mo derate to advanced facet arthropathy throughout the lumbar spine. The sacroiliac joints are normally outlined. Impression: Stable posterior fusion from L3-L4. Stable 7 mm anterolisthesis of L3 over L4. Stable 10 mm anterolisthesis of L5 over S1. Degenerative spondylosis of the lumbar spine, as noted above. Reviewed, dictated and finalized at [facility]. Impression: Stable posterior fusion from L3-L4. Stable 7 mm anterolisthesis of L3 over L4. Stable 10 mm anterolisthesis of L5 over S1. Degenerative spondylosis of the lumbar spine, as noted above.
== END 2022-11-27 11:06 | disposition home or self-care (01) ==
PROVIDERS: PCP Family Medicine; Visit Provider Neurological Surgery
DX: M43.16 Spondylolisthesis, lumbar region (principal); Z98.1 Arthrodesis status; M47.896 Other spondylosis, lumbar region
CPT/HCPCS: 72100

== ENCOUNTER 2023-06-10 12:16 | Outpatient (CLI) | payer MEDICARE, SELFPAY ==
[2023-06-10 13:22] LABS: Creatinine Urine 28.5 mg/dL; Total Protein Urine Random 11 mg/dL; Ur Ttl Prot Creatinine Ratio 0.39 mg/mg (0-0.20)
[2023-06-10 14:03] LABS: Albumin Level 4.5 g/dL (3.5-5.1); Anion Gap 9 mmol/L (8-16); Blood Urea Nitrogen 21 mg/dL (7-17); Calcium 9.1 mg/dL (8.4-10.2); Carbon Dioxide 24 mmol/L (22-30); Chloride 105 mmol/L (98-107); Estimated Glomerular Filt Rate 55; Glucose 87 mg/dL (65-110); Phosphorus 4.2 mg/dL (2.5-4.5); Potassium 3.9 mmol/L (3.4-5.0); Sodium 138 mmol/L (137-145)
== END 2023-06-10 12:17 | disposition home or self-care (01) ==
PROVIDERS: PCP Family Medicine; Visit Provider Internal Medicine Nephrology
DX: I12.9 Hypertensive chronic kidney disease with stage 1 through stage 4 chronic kidney disease, or unspecified chronic kidney disease (principal); N18.2 Chronic kidney disease, stage 2 (mild)
CPT/HCPCS: 36415; 80069; 82570; 84156

== ENCOUNTER 2023-07-14 12:30 | Outpatient (RCR) | payer MEDICARE, SELFPAY ==
--- NOTE | 2023-05-05 11:50 | OPREHPOC ---
Outpatient Therapy Plan of Care This is a Multidisciplinary Plan of Care that may contain components documented by all disciplines (PT, OT, and ST.) PT Problem 1 PT Problem #1 Knowledge Deficit PT Goal 1 Goal 1. Patient will perform independent HEP Target Visit 5 PT Problem 2 PT Problem #2 Impaired Strength PT Goal 1 Goal 1. Improve pelvic floor strength to 4/5 to decrease incontinence 2. Improve endurance to 10 seconds to decrease incontinence Target Visit 5 PT Problem 3 PT Problem #3 Impaired Functional ADLs PT Goal 1 Goal 1. Decrease incontinence to 1 time every other week in order to reduce pad use Target Visit 5
--- NOTE | 2023-05-05 11:51 | PTOPEVAL1 ---
Assessment and note entered by Samira Gupta DPT Evaluation Information Assessment Status Evaluation Subjective Information Pt reports she has been having urinary incontinence and urinary frequency. Wears pads at times. Some recent improvements after stopping a diuretic. Urinates at least 7 times a day, sometimes at night but not always. Incontinence happens daily and is usually a small amount. Denies pain with urination typically. Can hold urge 10 minutes at times but often times less. BM every few days without pain, very infrequent fecal incontinence. No history of pelvic pain. Pt has never been . Had polyps removed about 10 years ago. Patient goal: control urge to void and hold it longer, avoid wearing pads. Return appointment to MD scheduled next year. Reported Pain Level Pain Score 0: Self Report Assessment PT Clinical Summary The patient is presenting to skilled therapy with a history of mixed incontinence. She presents with decreased pelvic floor strength and endurance which are contributing to her symptoms. She will highly benefit from therapy to address these impairments in order to reduce incontinence and improve function. Plan of Care Interventions Manual Therapy,Neuro Re-education,Patient/ Caregiver Education,Therapeutic Activities, Therapeutic Exercise PT Services Indicated Yes Treatment Frequency and 1 time a week for 4 weeks Duration These treatments will address the objective and functional deficits as defined above. The patient will be advanced safely and appropriately in order for the patient to progress towards his/her prior level of function. Additional exercises will be introduced and as well as a comprehensive home exercise program upon discharge, if needed, ?to ensure carryover of functional gains achieved in the clinic. This treatment plan has been reviewed and agreement upon by the patient.
--- NOTE | 2023-06-02 10:37 | OPREHPOC ---
Outpatient Therapy Plan of Care This is a Multidisciplinary Plan of Care that may contain components documented by all disciplines (PT, OT, and ST.) PT Problem 1 PT Problem #1 Knowledge Deficit PT Goal 1 Goal 1. Patient will perform independent HEP Target Visit 8 Progress Partially Met PT Problem 2 PT Problem #2 Impaired Strength PT Goal 1 Goal 1. Improve pelvic floor strength to 4/5 to decrease incontinence 2. Improve endurance to 10 seconds to decrease incontinence Target Visit 8 Progress Partially Met Comment improved to 8 seconds PT Problem 3 PT Problem #3 Impaired Functional ADLs PT Goal 1 Goal 1. Decrease incontinence to 1 time every other week in order to reduce pad use Target Visit 8 Progress Partially Met
--- NOTE | 2023-06-02 10:37 | PTOPPROG ---
Assessment and note entered by Samira Gupta DPT Evaluation Information Assessment Status Progress Subjective Information Pt reports she feels therapy is going well overall and has improved her ability to control urgency. Incontinence twice in the last week, very small volumes and was able to finish by getting to the bathroom. Voiding 9 times a day on average and is sleeping through the night, more control in the morning. Can hold urge to void at least 30 minutes . Assessment PT Clinical Summary The patient has made good progress in therapy. She reports decreased frequency and volume of incontinence and decreased urgency/frequency of urination. She demonstrates improved pelvic floor endurance. Due to her progress, plan to continue therapy every other week to further address incontinence and frequency to return to full function. Plan of Care Interventions Manual Therapy,Neuro Re-education,Patient/ Caregiver Education,Therapeutic Activities, Therapeutic Exercise PT Services Indicated Yes Treatment Frequency and 1 visit every other week x 3 visits Duration These treatments will address the objective and functional deficits as defined above. The patient will be advanced safely and appropriately in order for the patient to progress towards his/her prior level of function. Additional exercises will be introduced and as well as a comprehensive home exercise program upon discharge, if needed, ?to ensure carryover of functional gains achieved in the clinic. This treatment plan has been reviewed and agreement upon by the patient.
--- NOTE | 2023-07-14 12:58 | OPREHPOC ---
Outpatient Therapy Plan of Care This is a Multidisciplinary Plan of Care that may contain components documented by all disciplines (PT, OT, and ST.) PT Problem 1 PT Problem #1 Knowledge Deficit PT Goal 1 Goal 1. Patient will perform independent HEP Target Visit 8 Progress Met PT Problem 2 PT Problem #2 Impaired Strength PT Goal 1 Goal 1. Improve pelvic floor strength to 4/5 to decrease incontinence 2. Improve endurance to 10 seconds to decrease incontinence Target Visit 8 Progress Partially Met Comment 1. not met 2. met PT Problem 3 PT Problem #3 Impaired Functional ADLs PT Goal 1 Goal 1. Decrease incontinence to 1 time every other week in order to reduce pad use Target Visit 8 Progress Met
--- NOTE | 2023-07-14 12:59 | PTOPDC ---
Assessment and note entered by Samira Gupta DPAlona Evaluation Information Assessment Status Discharge Subjective Information Pt reports she is feeling good with therapy and confident with discharge at this time. Does not remember having any incontinence in the last two weeks. Reported Pain Level Pain Score 0: Self Report Assessment PT Clinical Summary The patient has made excellent progress in therapy and reports no incontinence in the last two weeks . She demonstrates improved pelvic floor endurance . Due to her progress, plan to discharge to [facility]. She has been educated to follow up with PT and/or MD as needed. Plan of Care PT Services Indicated No
== END 2023-07-14 13:19 | disposition home or self-care (01) ==
LOC: ANHGOSHPT 12:30
PROVIDERS: PCP Family Medicine; Visit Provider Nurse Practitioner
DX: N39.46 Mixed incontinence (principal)
CPT/HCPCS: 97112; 97161; 97530

== ENCOUNTER 2023-12-07 13:01 | Outpatient (CLI) | payer MEDICARE, SELFPAY ==
[2023-12-07 13:39] LABS: Creatinine Urine 57.2 mg/dL; Total Protein Urine Random 6 mg/dL
[2023-12-07 13:41] LABS: Albumin Level 4.9 g/dL (3.5-5.1); Anion Gap 13 mmol/L (4-12); Blood Urea Nitrogen 19 mg/dL (7-17); Calcium 9.8 mg/dL (8.4-10.2); Carbon Dioxide 25 mmol/L (22-30); Chloride 103 mmol/L (98-107); Estimated Glomerular Filt Rate > 60; Glucose 82 mg/dL (65-110); Sodium 141 mmol/L (137-145)
[2023-12-07 13:52] LABS: Parathyroid Intact 38.4 pg/mL (7.5-53.5)
[2023-12-07 14:32] LABS: Vitamin D 25 Hydroxy 60.5 ng/mL
== END 2023-12-07 13:02 | disposition home or self-care (01) ==
PROVIDERS: PCP Family Medicine; Visit Provider Internal Medicine Nephrology
DX: E55.9 Vitamin D deficiency, unspecified (principal); I12.9 Hypertensive chronic kidney disease with stage 1 through stage 4 chronic kidney disease, or unspecified chronic kidney disease; N18.31 Chronic kidney disease, stage 3a; N25.81 Secondary hyperparathyroidism of renal origin
CPT/HCPCS: 36415; 80069; 82306; 82570; 83970; 84156

== ENCOUNTER 2024-03-10 13:19 | Outpatient (CLI) | payer MEDICARE, SELFPAY ==
--- NOTE | ~2024-03-10 | MR_ITS ---
MRI of the lumbar spine Clinical History: Right sciatica Technique: Axial T2-weighted images, and sagittal T1-weighted, T2-weighted, and and T2 fat-sat images were acquired. COMPARISON: 10/15/2021 Findings: Status post interval posterior fusion from L3 to L4, with bilateral rods and transpedicular screws present. There is been posterior decompression at L3-L4 level. Stable underlying grade 1 ante rolisthesis of L3 over L4. There is stable grade 1 anterolisthesis of L5 over S1. No acute fracture s een. No suspicious bone marrow signal abnormality seen. At L1-L2, there is advanced degenerative disc narrowing. There is mild disc bulge with severe facet a rthropathy. There is severe bilateral neural foraminal caliber otherwise. No anel central canal sten osis. At L2-L3, there is severe degenerative disc narrowing. There is diffuse disc bulge and severe facet a rthropathy. No anel central canal stenosis. There is severe right neural foraminal narrowing, and mo derate left neural foraminal narrowing. At L3-L4, there is severe degenerative disc narrowing. No spinal canal stenosis. There is severe righ t neural foraminal narrowing, and moderate left neural foraminal narrowing. At L4-L5, there is severe degenerative disc narrowing. Diffuse disc bulge and severe facet arthropath y. A present. No anel central canal stenosis. There is severe bilateral neural foraminal narrowing. At L5-S1, there is diffuse disc bulge with severe facet arthropathy. No anel central canal stenosis. There is moderate to advanced bilateral neural foraminal narrowing. Paravertebral soft tissues are unremarkable. Impression: Status post interval posterior fusion from L3 to L4, with posterior decompression at this level. Severe degenerative spondylosis throughout the lumbar spine, as detailed above. Reviewed, dictated and finalized at location M. Impression: Status post interval posterior fusion from L3 to L4, with posterior decompressi on at this level. Severe degenerative spondylosis throughout the lumbar spine, as detailed above.
== END 2024-03-10 13:20 | disposition home or self-care (01) ==
LOC: MICIMG 13:21
DX: M54.31 Sciatica, right side (principal); M47.896 Other spondylosis, lumbar region; Z98.1 Arthrodesis status
CPT/HCPCS: 72148

== ENCOUNTER 2024-08-29 13:06 | Outpatient (CLI) | payer MEDICARE, SELFPAY ==
--- NOTE | ~2024-08-29 | MM_ITS ---
EXAMINATION: MM screening edwar BI w luis felipe HISTORY: Screening TECHNIQUE: Craniocaudal and mediolateral oblique 3-D tomosynthesis images were obtained and synthetic 2-D images were generated. CAD analysis was submitted and interpreted. COMPARISON: No prior mammogram is available for comparison at this institution. BREAST PARENCHYMAL COMPOSITION: Not dense: There are scattered areas of fibroglandular density. FINDINGS: There is distortion inferiorly and centrally in both breasts, consistent with prior breast reduction surgery. There is no evidence of suspicious mass, calcification, or architectural distortio n to suggest malignancy in either breast. There has been no suspicious interval change. IMPRESSION: 1. No mammographic evidence of malignancy. 2. Recommend routine screening mammography in one year. BI-RADS Category 2: Benign finding(s). Reviewed, dictated and finalized at location A.
== END 2024-08-29 13:07 | disposition home or self-care (01) ==
LOC: MICIMG 13:07
PROVIDERS: Visit Provider Obstetrics & Gynecology Gynecology
DX: Z12.31 Encounter for screening mammogram for malignant neoplasm of breast (principal)
CPT/HCPCS: 77063; 77067